=== PATIENT | female | born 1970 | race American Indian/Alaskan Native ===

== ENCOUNTER 2024-09-14 17:08 | Emergency (ER) | payer MEDICAID ==
[2024-09-14] MEDS: Ondansetron 4 MG Tab.DIS PO ONE (18:43)
[2024-09-14] MEDS: Azithromycin 250 MG Tab PO STA (18:43)
[2024-09-14] MEDS: Acetaminophen/HYDROcodone 325-5 MG Tab PO ONE (18:44)
== END 2024-09-14 20:23 | disposition home or self-care (01) ==
LOC: JD.ED 17:08
DX: J18.9 Pneumonia, unspecified organism (principal); I10 Essential (primary) hypertension; J40 Bronchitis, not specified as acute or chronic; E11.9 Type 2 diabetes mellitus without complications; Z91.030 Bee allergy status; Z88.0 Allergy status to penicillin; Z88.5 Allergy status to narcotic agent; Z79.899 Other long term (current) drug therapy
CPT/HCPCS: 71045; 87426; 99283; A9270

== ENCOUNTER 2024-11-01 17:51 | Emergency (ER) | payer MEDICAID | END 2024-11-01 19:39 | disposition home or self-care (01) | LOC: JD.ED 17:51 | DX: R05.2 Subacute cough (principal); I10 Essential (primary) hypertension; J45.909 Unspecified asthma, uncomplicated; E11.9 Type 2 diabetes mellitus without complications; Z86.16 Personal history of COVID-19; Z88.0 Allergy status to penicillin; Z88.5 Allergy status to narcotic agent; Z88.8 Allergy status to other drugs, medicaments and biological substances; Z91.030 Bee allergy status; Z79.51 Long term (current) use of inhaled steroids; Z79.899 Other long term (current) drug therapy | CPT/HCPCS: 71045; 99283; J7512; 99284 ==